=== PATIENT | male | born 1950 | race Hispanic/Latino ===

== ENCOUNTER 2018-09-02 11:01 | Day surgery (SDC) | payer MEDICARE ==
[~2018-09-02 11:01] MED LIST: BP PILL PO; EQ ASPIRIN LOW81 MG PO; EQ OMEPRAZOLE M20 MG PO; FINASTERIDE5 MG PO; INSULIN; LANTUS SOL100 UNIT/M SC; LEVOTHYROXIN25 MC1 PO; LISINOPRIL2.5 MG PO; LOPRESSOR50 M2 PO; METFORMIN1000 MG PO; PRAVASTATIN40 MG PO; PROSTATE PILL PO; TAMSULOSIN HCL0.4 MG PO; [UNRECOGNIZED DRUG - OTHER]
[2018-09-02 14:44] VITALS: BP 124/79
== END 2018-09-02 14:25 | disposition home or self-care (01) ==
LOC: ENDO 11:01 → ORM 12:45 → ENDO 14:10 → ORM 14:10 → ENDO 14:25 → ORM 15:30 → ENDO 16:45 → ORM 16:45
PROVIDERS: ATTEND Internal Medicine Gastroenterology
PROC: 0DB58ZX Excision of Esophagus, Via Natural or Artificial Opening Endoscopic, Diagnostic (ICD-10-PCS; principal; 2018-09-02)
PROC: 0DBL8ZX Excision of Transverse Colon, Via Natural or Artificial Opening Endoscopic, Diagnostic (ICD-10-PCS; 2018-09-02)
PROC: 0DBN8ZX Excision of Sigmoid Colon, Via Natural or Artificial Opening Endoscopic, Diagnostic (ICD-10-PCS; 2018-09-02)
PROC: 0DD48ZX Extraction of Esophagogastric Junction, Via Natural or Artificial Opening Endoscopic, Diagnostic (ICD-10-PCS; 2018-09-02)
DX: K22.70 Barrett's esophagus without dysplasia (principal); K29.71 Gastritis, unspecified, with bleeding; K44.9 Diaphragmatic hernia without obstruction or gangrene; D12.5 Benign neoplasm of sigmoid colon; D12.3 Benign neoplasm of transverse colon; K63.5 Polyp of colon; K64.4 Residual hemorrhoidal skin tags; K64.8 Other hemorrhoids; I25.10 Atherosclerotic heart disease of native coronary artery without angina pectoris; E11.9 Type 2 diabetes mellitus without complications; I10 Essential (primary) hypertension; I25.2 Old myocardial infarction; Z86.010 Personal history of colon polyps